=== PATIENT | female | born 1940 | race Caucasian/White ===

== ENCOUNTER 2021-02-03 20:47 | Inpatient (IN) | payer OTHER, MEDICARE ==
[2021-02-04] MEDS ORDERED: Ondansetron PF 4 MG/2 ML Vial IVP PRN (00:57)
[2021-02-04] MEDS ORDERED: hydrALAZINE 20 MG/ML VIAL SLOW IVP PRN (00:57)
[2021-02-04] MEDS ORDERED: Morphine 2 MG/ML VIAL SLOW IVP PRN (00:57)
[2021-02-04] MEDS ORDERED: Dextrose 5% in Water 1,000 ML IV PRN (00:57)
[2021-02-04] MEDS ORDERED: Dextrose 50% Abboject 50 ML SYRINGE SLOW IVP PRN (00:57)
[2021-02-04] MEDS ORDERED: traMADol HCl 50 MG TAB PO PRN (01:04)
[2021-02-04] MEDS: Sodium Chloride 0.9% 1,000 ML IV SCH ×2 (02:45→18:27)
[2021-02-04 04:59] LABS: Bilirubin Negative (Negative); Blood, Urine Negative (Negative); Clarity Clear (Clear); Glucose, Urine (Dipstick) Normal (Negative); Ketone, Urine Negative (Negative); Leukocyte Negative Leu/uL (Negative); Nitrite Negative (Negative); Protein, Urine (Dipstick) 10 mg/dL (Neg-Trace); RBC/HPF 0-3 HPF (0-3); Specific Gravity, Urine 1.016 (1.002-1.036); Squamous Epithelial 0-3 HPF (0-3); Urobilinogen Normal mg/dL (Less than 2)
[2021-02-04 05:22] LABS: Bacteria/HPF 1+ HPF (None Seen)
[2021-02-04 05:24] LABS: Urine Culture Reflex Yes Yes
[2021-02-04] MEDS: Acetaminophen 500 MG TAB PO SCH ×4 (07:43→20:35)
[2021-02-04] MEDS: Polyethylene Glycol 3350 17 GM Packet PO SCH (08:03)
[2021-02-04] MEDS: Senokot S 8.6-50 MG TAB PO SCH ×2 (08:03→21:29)
[2021-02-04] MEDS: Famotidine/PF 20 mg/2ml Vial SLOW IVP SCH ×2 (08:05→20:35)
[2021-02-04] MEDS ORDERED: CEFAZOLIN 2 GM in Premix Bag 1 BAG IVPB SCH ×2 (08:15→14:22)
[2021-02-04] MEDS ORDERED: Fentanyl 100 MCG/2 ML VIAL ONE (10:47)
[2021-02-04] MEDS ORDERED: Famotidine/PF 20 mg/2ml Vial ONE (10:48)
[2021-02-04] MEDS ORDERED: Lidocaine 1% PF 5 ML VIAL ONE (11:29)
[2021-02-04] MEDS ORDERED: Metoclopramide HCl 10 MG/2 ML VIAL ONE (11:29)
[2021-02-04] MEDS ORDERED: ePHEDrine 50 MG/ML VIAL ONE (11:29)
[2021-02-04] MEDS ORDERED: Rocuronium Bromide 10 MG/ML (10ML VIAL) ONE (11:29)
[2021-02-04] MEDS ORDERED: Ondansetron PF 4 MG/2 ML Vial ONE (11:29)
[2021-02-04] MEDS ORDERED: Glycopyrrolate 0.2 MG/ML 5 ML SYRINGE ONE (11:29)
[2021-02-04] MEDS ORDERED: Ketorolac Tromethamine 30 MG/ML VIAL ONE (11:29)
[2021-02-04] MEDS ORDERED: PROPOFOL 200 MG/20 ML VIAL ONE (11:29)
[2021-02-04] MEDS ORDERED: PHENYLEPHRINE-NS 100 MCG/ML 10 ML SYRINGE ONE (11:29)
[2021-02-04] MEDS ORDERED: SUGAMMADEX SODIUM 200 MG/2 ML VIAL ONE (12:40)
[2021-02-04] MEDS ORDERED: Ondansetron HCl/PF 4 MG/2 ML Vial IVP PRN (13:19)
[2021-02-04] MEDS ORDERED: Sodium Chloride 0.9% 1,000 ML IV SCH (15:45)
[2021-02-04] MEDS: Donepezil HCl 5 MG TAB PO SCH (20:35)
[2021-02-04] MEDS: ceFAZolin Sodium/D5W 2 GM in Premix Bag 1 BAG IVPB SCH (20:37)
[2021-02-04] MEDS: Nitrofurantoin Monohyd/M-Cryst 100 MG CAP PO SCH (21:29)
[2021-02-04 21:31] LABS: #Basophils 0.1 thou/uL (0.0-0.2); #Lymphocytes 2.4 thou/uL (1.20-3.40); #Monocytes 0.9 thou/uL (0.11-0.59); #Neutrophils 9.4 thou/uL (1.40-6.50); %Basophils 0.4 % (0.0-1.0); %Eosinophils 0.2 % (0.0-10.0); %Lymphocytes 18.7 % (21.0-51.0); %Monocytes 6.8 % (0.0-10.0); %Neutrophils 73.9 % (42.0-75.0); Anisocytosis SLIGHT = 6-15 cells (100X) (0-5/hpf); MDiff Complete? YES; Macrocytosis MODERATE=16-30 cells (100X) (0-5/hpf); Mean Corpuscular HGB CONC 33.1 g/dL (32.0-36.0); Platelet Count 91 thou/uL (130-400); Platelet Morphology Comment Appears Decreased; Red Blood Cell (RBC) Count 2.51 mill/uL (4.20-5.40); White Blood Cell (WBC) Count 12.7 thou/uL (4.8-10.8)
[2021-02-04 21:34] LABS: Anion Gap 11 mmol/L (10-20); BUN (Urea Nitrogen) 14 mg/dL (9.8-20.1); Calc. Creatinine Clearance 71 mL/min (70-130); Carbon Dioxide 28 mmol/L (23-31); Chloride 103 mmol/L (98-107); Glucose 122 mg/dL (83-110); Magnesium 1.9 mg/dL (1.6-2.6); Phosphorus 3.3 mg/dL (2.3-4.7); Potassium 3.5 mmol/L (3.5-5.1); Sodium 138 mmol/L (136-145)
[2021-02-04] MEDS ORDERED: Potassium Phosphate 15 MMOL in Sodium Chloride 0.9% 250 ML 250 ML IVPB SCH (21:45)
[2021-02-04] MEDS ORDERED: Hydrocortisone Sod Succ/PF 100 mg/2 ml Vial IVP SCH (23:30)
[2021-02-05] MEDS: Acetaminophen 500 MG TAB PO SCH ×4 (00:45→18:37)
[2021-02-05] MEDS: ceFAZolin Sodium/D5W 2 GM in Premix Bag 1 BAG IVPB SCH ×2 (05:02→12:52)
[2021-02-05] MEDS: Hydrocortisone Sod Succ/PF 100 mg/2 ml Vial IVP SCH ×3 (05:13→18:39)
[2021-02-05] MEDS: Levothyroxine 150 MCG TAB PO SCH (05:14)
[2021-02-05 06:21] LABS: #Lymphocytes 1.2 thou/uL (1.20-3.40); #Monocytes 0.4 thou/uL (0.11-0.59); #Neutrophils 7.6 thou/uL (1.40-6.50); %Basophils 0.2 % (0.0-1.0); %Eosinophils 0.1 % (0.0-10.0); %Lymphocytes 12.7 % (21.0-51.0); %Monocytes 4.7 % (0.0-10.0); %Neutrophils 82.3 % (42.0-75.0); Mean Corpuscular HGB CONC 33.9 g/dL (32.0-36.0); Mean Corpuscular Hemoglobin 36.7 pg (27.0-31.0); Mean Platelet Volume 9.6 fL (7.4-10.4); Platelet Count 80 thou/uL (130-400); RBC Distribution Width 14.6 % (11.5-14.5); Red Blood Cell (RBC) Count 2.19 mill/uL (4.20-5.40); White Blood Cell (WBC) Count 9.2 thou/uL (4.8-10.8)
[2021-02-05 06:37] LABS: Anion Gap 11 mmol/L (10-20); BUN (Urea Nitrogen) 13 mg/dL (9.8-20.1); Calc. Creatinine Clearance 70 mL/min (70-130); Calcium 8.1 mg/dL (7.8-10.44); Carbon Dioxide 27 mmol/L (23-31); Chloride 101 mmol/L (98-107); Glucose 136 mg/dL (83-110); Magnesium 1.9 mg/dL (1.6-2.6); Phosphorus 3.7 mg/dL (2.3-4.7); Potassium 3.6 mmol/L (3.5-5.1); Sodium 135 mmol/L (136-145)
[2021-02-05] MEDS: Polyethylene Glycol 3350 17 GM Packet PO SCH (09:18)
[2021-02-05] MEDS: Nitrofurantoin Monohyd/M-Cryst 100 MG CAP PO SCH ×2 (09:20→19:29)
[2021-02-05] MEDS: Famotidine/PF 20 mg/2ml Vial SLOW IVP SCH ×2 (09:21→19:28)
[2021-02-05] MEDS: Senokot S 8.6-50 MG TAB PO SCH ×2 (09:25→19:28)
[2021-02-05] MEDS: Sodium Chloride 0.9% 1,000 ML IV SCH (18:09)
[2021-02-05] MEDS: traMADol HCl 50 MG TAB PO PRN (18:38)
[2021-02-05] MEDS: Gabapentin 300 MG CAP PO SCH (19:29)
[2021-02-05] MEDS: Donepezil HCl 5 MG TAB PO SCH (19:29)
[2021-02-05] MEDS: Carvedilol 6.25 MG TAB PO SCH (21:46)
[2021-02-06] MEDS: Hydrocortisone Sod Succ/PF 100 mg/2 ml Vial IVP SCH ×4 (00:59→18:13)
[2021-02-06] MEDS: Acetaminophen 500 MG TAB PO SCH ×4 (01:15→18:13)
[2021-02-06] MEDS: Levothyroxine 150 MCG TAB PO SCH (05:56)
[2021-02-06 06:10] LABS: #Lymphocytes 1.5 thou/uL (1.20-3.40); #Monocytes 0.5 thou/uL (0.11-0.59); #Neutrophils 7.3 thou/uL (1.40-6.50); %Basophils 0.1 % (0.0-1.0); %Eosinophils 0.1 % (0.0-10.0); %Lymphocytes 16.1 % (21.0-51.0); %Monocytes 4.8 % (0.0-10.0); %Neutrophils 78.9 % (42.0-75.0); Mean Corpuscular HGB CONC 34.4 g/dL (32.0-36.0); Mean Corpuscular Hemoglobin 37.3 pg (27.0-31.0); Mean Platelet Volume 9.3 fL (7.4-10.4); Platelet Count 72 thou/uL (130-400); RBC Distribution Width 14.8 % (11.5-14.5); Red Blood Cell (RBC) Count 2.13 mill/uL (4.20-5.40); White Blood Cell (WBC) Count 9.3 thou/uL (4.8-10.8)
[2021-02-06 06:23] LABS: Anion Gap 9 mmol/L (10-20); BUN (Urea Nitrogen) 13 mg/dL (9.8-20.1); Calc. Creatinine Clearance 86 mL/min (70-130); Calcium 8.3 mg/dL (7.8-10.44); Carbon Dioxide 29 mmol/L (23-31); Chloride 105 mmol/L (98-107); Glucose 133 mg/dL (83-110); Magnesium 2.2 mg/dL (1.6-2.6); Potassium 3.6 mmol/L (3.5-5.1); Sodium 139 mmol/L (136-145)
[2021-02-06] MEDS: Nitrofurantoin Monohyd/M-Cryst 100 MG CAP PO SCH ×2 (08:39→20:24)
[2021-02-06] MEDS: Atorvastatin Calcium 40 MG TAB PO SCH (08:40)
[2021-02-06] MEDS: Famotidine 20 MG TAB PO SCH ×2 (08:40→20:24)
[2021-02-06] MEDS: Citalopram 20 MG TAB PO SCH (08:40)
[2021-02-06] MEDS: Carvedilol 6.25 MG TAB PO SCH ×2 (08:41→20:24)
[2021-02-06] MEDS: Senokot S 8.6-50 MG TAB PO SCH ×2 (08:41→21:14)
[2021-02-06] MEDS: Polyethylene Glycol 3350 17 GM Packet PO SCH (08:41)
[2021-02-06] MEDS: traMADol HCl 50 MG TAB PO PRN ×3 (09:41→21:00)
[2021-02-06] MEDS: Donepezil HCl 5 MG TAB PO SCH (20:24)
[2021-02-06] MEDS: Gabapentin 300 MG CAP PO SCH (20:25)
[2021-02-07] MEDS: Acetaminophen 500 MG TAB PO SCH ×4 (00:09→18:30)
[2021-02-07] MEDS: Hydrocortisone Sod Succ/PF 100 mg/2 ml Vial IVP SCH ×4 (00:10→18:30)
[2021-02-07] MEDS: Levothyroxine 150 MCG TAB PO SCH (06:07)
[2021-02-07] MEDS: Atorvastatin Calcium 40 MG TAB PO SCH (09:36)
[2021-02-07] MEDS: Clopidogrel Bisulfate 75 MG TAB PO SCH (09:36)
[2021-02-07] MEDS: Carvedilol 6.25 MG TAB PO SCH ×2 (09:37→21:30)
[2021-02-07] MEDS: traMADol HCl 50 MG TAB PO PRN ×2 (09:38→21:30)
[2021-02-07] MEDS: Nitrofurantoin Monohyd/M-Cryst 100 MG CAP PO SCH ×2 (09:39→21:29)
[2021-02-07] MEDS: Citalopram 20 MG TAB PO SCH (09:39)
[2021-02-07] MEDS: Famotidine 20 MG TAB PO SCH ×2 (09:39→21:29)
[2021-02-07] MEDS: Polyethylene Glycol 3350 17 GM Packet PO SCH (15:51)
[2021-02-07] MEDS: Senokot S 8.6-50 MG TAB PO SCH ×2 (15:52→21:31)
[2021-02-07] MEDS: Donepezil HCl 5 MG TAB PO SCH (21:29)
[2021-02-07] MEDS: Gabapentin 300 MG CAP PO SCH (21:29)
[2021-02-08] MEDS: Hydrocortisone Sod Succ/PF 100 mg/2 ml Vial IVP SCH ×2 (00:06→06:14)
[2021-02-08] MEDS: Acetaminophen 500 MG TAB PO SCH ×4 (00:07→18:51)
[2021-02-08] MEDS: Levothyroxine 150 MCG TAB PO SCH (06:14)
[2021-02-08] MEDS: Famotidine 20 MG TAB PO SCH ×2 (10:18→20:47)
[2021-02-08] MEDS: Carvedilol 6.25 MG TAB PO SCH ×2 (10:19→20:49)
[2021-02-08] MEDS: Nitrofurantoin Monohyd/M-Cryst 100 MG CAP PO SCH ×2 (10:21→20:47)
[2021-02-08] MEDS: Citalopram 20 MG TAB PO SCH (10:21)
[2021-02-08] MEDS: Atorvastatin Calcium 40 MG TAB PO SCH ×2 (10:39→16:48)
[2021-02-08] MEDS: Clopidogrel Bisulfate 75 MG TAB PO SCH (10:39)
[2021-02-08] MEDS: Polyethylene Glycol 3350 17 GM Packet PO SCH (10:39)
[2021-02-08] MEDS: Senokot S 8.6-50 MG TAB PO SCH ×3 (10:39→20:47)
[2021-02-08] MEDS: Donepezil HCl 5 MG TAB PO SCH (20:47)
[2021-02-08] MEDS: traMADol HCl 50 MG TAB PO PRN (20:48)
[2021-02-08] MEDS: Gabapentin 300 MG CAP PO SCH (20:48)
[2021-02-09] MEDS: Acetaminophen 500 MG TAB PO SCH ×5 (00:26→23:28)
[2021-02-09] MEDS: Levothyroxine 150 MCG TAB PO SCH (05:54)
[2021-02-09] MEDS: Nitrofurantoin Monohyd/M-Cryst 100 MG CAP PO SCH ×2 (08:53→20:32)
[2021-02-09] MEDS: Atorvastatin Calcium 40 MG TAB PO SCH (08:53)
[2021-02-09] MEDS: Famotidine 20 MG TAB PO SCH ×2 (08:53→20:33)
[2021-02-09] MEDS: Citalopram 20 MG TAB PO SCH (08:53)
[2021-02-09] MEDS: Senokot S 8.6-50 MG TAB PO SCH ×2 (08:53→20:34)
[2021-02-09] MEDS: Carvedilol 6.25 MG TAB PO SCH ×2 (08:54→20:31)
[2021-02-09] MEDS: Polyethylene Glycol 3350 17 GM Packet PO SCH (08:55)
[2021-02-09] MEDS: Clopidogrel Bisulfate 75 MG TAB PO SCH (09:02)
[2021-02-09] MEDS: Gabapentin 300 MG CAP PO SCH (20:32)
[2021-02-09] MEDS: traMADol HCl 50 MG TAB PO PRN (20:33)
[2021-02-09] MEDS: Donepezil HCl 5 MG TAB PO SCH (20:33)
[2021-02-10] MEDS: Acetaminophen 500 MG TAB PO SCH ×3 (06:04→20:06)
[2021-02-10] MEDS: Levothyroxine 150 MCG TAB PO SCH (06:04)
[2021-02-10] MEDS: Carvedilol 6.25 MG TAB PO SCH ×2 (08:58→22:35)
[2021-02-10] MEDS: Polyethylene Glycol 3350 17 GM Packet PO SCH (08:58)
[2021-02-10] MEDS: Citalopram 20 MG TAB PO SCH (08:58)
[2021-02-10] MEDS: Atorvastatin Calcium 40 MG TAB PO SCH (08:59)
[2021-02-10] MEDS: Famotidine 20 MG TAB PO SCH ×2 (08:59→22:36)
[2021-02-10] MEDS: Clopidogrel Bisulfate 75 MG TAB PO SCH (08:59)
[2021-02-10] MEDS: Senokot S 8.6-50 MG TAB PO SCH ×2 (09:00→22:36)
[2021-02-10 15:53] VITALS: TEMP 98.1
[2021-02-10] MEDS: traMADol HCl 50 MG TAB PO PRN (22:35)
[2021-02-10] MEDS: Donepezil HCl 5 MG TAB PO SCH (22:36)
[2021-02-10] MEDS: Gabapentin 300 MG CAP PO SCH (22:36)
[2021-02-11] MEDS: Acetaminophen 500 MG TAB PO SCH ×2 (00:19→05:52)
[2021-02-11 05:33] VITALS: BMI 23.7
[2021-02-11] MEDS: Levothyroxine 150 MCG TAB PO SCH (05:52)
[2021-02-11] MEDS: Famotidine 20 MG TAB PO SCH (09:35)
[2021-02-11] MEDS: Senokot S 8.6-50 MG TAB PO SCH (09:35)
[2021-02-11] MEDS: Clopidogrel Bisulfate 75 MG TAB PO SCH (09:35)
[2021-02-11] MEDS: Citalopram 20 MG TAB PO SCH (09:35)
[2021-02-11] MEDS: Atorvastatin Calcium 40 MG TAB PO SCH (09:35)
[2021-02-11] MEDS: Carvedilol 6.25 MG TAB PO SCH (09:35)
[2021-02-11] MEDS: Polyethylene Glycol 3350 17 GM Packet PO SCH (09:36)
[2021-02-11 12:02] VITALS: BP 111/60
== END 2021-02-11 14:00 | DRG 956 ==
LOC: OBSVTOIN 20:47 → IMCU/EMU 20:47 → SURG A 02-04 14:10
PROVIDERS: ADMIT Surgery; ATTEND Surgery
PROC: 0SRS0JZ Replacement of Left Hip Joint, Femoral Surface with Synthetic Substitute, Open Approach (ICD-10-PCS; principal; 2021-02-04)
DX: S72.002A Fracture of unspecified part of neck of left femur, initial encounter for closed fracture (principal); S06.350A Traumatic hemorrhage of left cerebrum without loss of consciousness, initial encounter; N39.0 Urinary tract infection, site not specified; F03.90 Unspecified dementia, unspecified severity, without behavioral disturbance, psychotic disturbance, mood disturbance, and anxiety; I11.0 Hypertensive heart disease with heart failure; I50.9 Heart failure, unspecified; E03.9 Hypothyroidism, unspecified; Z96.653 Presence of artificial knee joint, bilateral; K21.9 Gastro-esophageal reflux disease without esophagitis; Z20.822 Contact with and (suspected) exposure to COVID-19; W01.10XA Fall on same level from slipping, tripping and stumbling with subsequent striking against unspecified object, initial encounter; D69.6 Thrombocytopenia, unspecified; Z85.3 Personal history of malignant neoplasm of breast; Z90.13 Acquired absence of bilateral breasts and nipples
CPT/HCPCS: 36415; 70450; 72170; 80048; 81001; 82533; 83735; 83880; 84100; 85025; 87077; 87086; 87186; C1776; J0690; J1720; J1885; J2405; J2704; J2765; J3010; J3490; J7030; J7050; S0028